=== PATIENT | female | born 1990 | race American Indian/Alaskan Native ===

== ENCOUNTER 2020-06-26 20:36 | Emergency (ER) | payer OTHER ==
[2020-06-27] MEDS ORDERED: dexAMETHasone 20 MG/5 ML VIAL IM ONE (00:46)
[2020-06-27] MEDS ORDERED: hydrOXYzine PAMOATE 25 MG CAP PO ONE ×2 (00:46)
[2020-06-27] MEDS ORDERED: FAMOTIDINE 20 MG TAB PO ONE ×2 (00:46)
--- NOTE | 2020-06-27 00:51 | Emergency Department Report ---
ED Allergic Reaction HPI - General Chief complaint: Skin Rash Stated complaint: ALLERGIC REACTION Source: patient Mode of arrival: Ambulatory Limitations: No Limitations - History of Present Illness Initial Comments: Patient is a nulliparous 29-year-old -Ind[place]ian female with no past medical history presents to the ED with acute onset persistent itchy diffuse erythematous maculopapular urticarial rashes after eating some spicy food over 1 week ago. Patient states that she has been taking Benadryl intermittently which she admits has been helping her with itching but that as soon as the Benadryl wears out the itching resumes. Patient states that about 2 days ago she had mild lower lip swelling but that also improved with Benadryl. Patient states that the last time she took Benadryl was over 12 hours ago and that a few hours prior to arrival in the ED, the itching became worse and she decided come to the ED for evaluation. Patient denies swollen tongue, swollen throat, dysphagia, dysphonia, shortness of breath, cough, chest pain, wheezing, nausea and vomiting, diarrhea or abdominal pain, fever or chills, facial swelling or hoarseness. MD Complaint: allergic reaction, hives, other (diffuse itchy erythematous maculopapular urticarial rashes) -: Sudden, week(s) (1) Exposure: food Symptoms: rash, itching. denies: facial swelling, lip swelling, difficulty swallowing, difficulty breathing, orolingual swelling, hoarseness, syncopy, dizziness, nausea, vomiting, other, abdominal pain Severity: severe Treatment Prior to Arrival: benadryl (12 hours ago) Previous Allergy History: none - Related Data Previous Rx's Medication Instructions Recorded Last Taken Type Famotidine [Pepcid] 20 mg PO BID #30 tablet 06/27/20 Unknown Rx Prednisone [predniSONE 10 mg 10 mg PO .TAPER #21 tab.ds.pk 06/27/20 Unknown Rx (6-Day Pack, 21 Tabs)] diphenhydrAMINE [Benadryl CAP] 25 mg PO Q6HR PRN #30 capsule 06/27/20 Unknown Rx ED Review of Systems ROS: Stated complaint: ALLERGIC REACTION Other details as noted in HPI Constitutional: denies: chills, fever Eyes: denies: eye pain, eye discharge, vision change ENT: denies: ear pain, throat pain Respiratory: denies: cough, shortness of breath, wheezing Cardiovascular: denies: chest pain, palpitations Endocrine: no symptoms reported Gastrointestinal: denies: abdominal pain, nausea, diarrhea Genitourinary: denies: urgency, dysuria, discharge Musculoskeletal: denies: back pain, joint swelling, arthralgia Skin: rash, change in color, pruritus, other (Diffuse erythematous maculopapular urticarial rashes). denies: lesions Neurological: denies: headache, weakness, paresthesias Psychiatric: denies: anxiety, depression Hematological/Lymphatic: denies: easy bleeding, easy bruising ED Past Medical Hx - Past Medical History Previous Medical History?: No - Surgical History Past Surgical History?: Yes Additional Surgical History: Breast - Social History Smoking Status: Never Smoker Substance Use Type: Alcohol - Medications Home Medications: Home Medications Medication Instructions Recorded Confirmed Last Taken Type Famotidine [Pepcid] 20 mg PO BID #30 tablet 06/27/20 Unknown Rx Prednisone [predniSONE 10 mg 10 mg PO .TAPER #21 tab.ds.pk 06/27/20 Unknown Rx (6-Day Pack, 21 Tabs)] diphenhydrAMINE [Benadryl CAP] 25 mg PO Q6HR PRN #30 capsule 06/27/20 Unknown Rx ED Physical Exam - General Limitations: No Limitations General appearance: alert, in no apparent distress - Head Head exam: Present: atraumatic, normocephalic, normal inspection - Eye Eye exam: Present: normal appearance, PERRL, EOMI Pupils: Present: normal accommodation - ENT ENT exam: Present: normal exam, normal orophraynx, mucous membranes moist, TM's normal bilaterally, normal external ear exam - Neck Neck exam: Present: normal inspection, full ROM - Respiratory Respiratory exam: Present: normal lung sounds bilaterally. Absent: respiratory distress, wheezes, rales, stridor, chest wall tenderness, accessory muscle use, prolonged expiratory - Cardiovascular Cardiovascular Exam: Present: normal rhythm, tachycardia, normal heart sounds. Absent: systolic murmur, diastolic murmur, rubs, gallop - GI/Abdominal GI/Abdominal exam: Present: soft, normal bowel sounds. Absent: tenderness, guarding, rebound, hyperactive bowel sounds, hypoactive bowel sounds, mass - Extremities Exam Extremities exam: Present: normal inspection, full ROM, normal capillary refill - Back Exam Back exam: Present: normal inspection, full ROM. Absent: tenderness, CVA tenderness (R), CVA tenderness (L), muscle spasm, paraspinal tenderness, vertebral tenderness - Neurological Exam Neurological exam: Present: alert, oriented X3, CN II-XII intact, normal gait, reflexes normal - Psychiatric Psychiatric exam: Present: normal affect, normal mood - Skin Skin exam: Present: warm, dry, intact, rash (Diffuse erythematous maculopapular urticarial rashes), erythema, urticaria ED Course Vital Signs 06/26/20 20:50 Temperature 99.9 F H Pulse Rate 128 H Respiratory 16 Rate Blood Pressure 122/73 O2 Sat by Pulse 98 Oximetry ED Medical Decision Making - Medical Decision Making This is a nulliparous 29-year-old -Ind[place]ian female with no past medical history presents to the ED with acute onset persistent itchy diffuse erythematous maculopapular urticarial rashes after eating some spicy food over 1 week ago. Patient states that she has been taking Benadryl intermittently which she admits has been helping her with itching but that as soon as the Benadryl wears out the itching resumes. Patient states that about 2 days ago she had mild lower lip swelling but that also improved with Benadryl. Patient states that the last time she took Benadryl was over 12 hours ago and that a few hours prior to arrival in the ED, the itching became worse and she decided come to the ED for evaluation. In the ED, patient is alert and oriented x3 and is not in distress but tachycardic in triage. Patient was treated in the ED for acute allergic reaction with Decadron, Pepcid and Vistaril. On reevaluation, patient's itching resolved as well as the rashes. Patient's tachycardia also resolved. Patient was discharged home on most steroid Dosepak, Benadryl as well as Pepcid prescriptions. Patient was advised to follow-up with her primary care physician in 5 to 7 days for reevaluation or return to the ED immediately if symptoms get worse. - Differential Diagnosis Urticaria; angioedema; dyspnea, allergic reaction; Itching Critical care attestation.: If time is entered above; I have spent that time in minutes in the direct care of this critically ill patient, excluding procedure time. ED Disposition Clinical Impression: Acute urticaria, Itching with irritation Acute allergic reaction Qualifiers: Encounter type: initial encounter Qualified Code(s): T78.40XA - Allergy, unspecified, initial encounter Disposition: TO HOME OR SELFCARE Is pt being admited?: No Does the pt Need Aspirin: No Condition: Stable Instructions: Urticaria (ED), Allergies (ED), Itchy Skin (ED) Additional Instructions: Take medication with food, drink plenty of fluids and follow-up with your primary care physician in 3 to 5 days for reevaluation. Return to the ED immediately if symptoms get worse. Prescriptions: diphenhydrAMINE [Benadryl CAP] 25 mg PO Q6HR PRN #30 capsule PRN Reason: Itching Famotidine [Pepcid] 20 mg PO BID #30 tablet Prednisone [predniSONE 10 mg (6-Day Pack, 21 Tabs)] 10 mg PO .TAPER #21 tab.ds.pk Referrals: [facility] [Provider Group] - 3-5 Days Time of Disposition: 00:51 Print Language: BURUNDIAN
[2020-06-27 07:59] VITALS: BP 122/59
== END 2020-06-27 01:55 | disposition home or self-care (01) ==
LOC: ED 20:36
DX: T78.40XA Allergy, unspecified, initial encounter (principal); L50.8 Other urticaria; L29.9 Pruritus, unspecified; Z98.890 Other specified postprocedural states; Z79.899 Other long term (current) drug therapy; X58.XXXA Exposure to other specified factors, initial encounter
CPT/HCPCS: 96372; 99282; J1100; Q0177

== ENCOUNTER 2020-07-04 16:38 | Emergency (ER) | payer OTHER ==
[2020-07-04 16:51] VITALS: BP 144/86
[2020-07-04] MEDS ORDERED: ONDANSETRON 4 MG/2 ML INJ IV STA (18:29)
[2020-07-04] MEDS ORDERED: SODIUM CHLORIDE 0.9% 1000 ML 1,000 ML IV ONE ×2 (18:29→21:16)
[2020-07-04 19:00] LABS: Basophils % (Auto) 0.3 % (0.0-1.8); Eosinophils % (Auto) 0.1 % (0.0-4.3); Hematocrit 42.2 % (30.3-42.9); Hemoglobin 13.5 gm/dl (10.1-14.3); Lymphocytes # (Auto) 2.3 K/mm3 (1.2-5.4); Lymphocytes % (Auto) 22.5 % (13.4-35.0); Mean Corpuscular HGB Conc 32 % (30-34); Mean Corpuscular Volume 81 fl (79-97); Monocytes % (Auto) 9.8 % (0.0-7.3); Platelet Count 355 K/mm3 (140-440); Red Blood Count 5.23 M/mm3 (3.65-5.03); Red Cell Distribution Width 14.6 % (13.2-15.2)
[2020-07-04 19:21] LABS: Alanine Aminotransferase 24 units/L (7-56); Albumin 4.3 g/dL (3.9-5); BUN/Creatinine Ratio 28; Blood Urea Nitrogen 14 mg/dL (7-17); Calcium 10.6 mg/dL (8.4-10.2); Hemolysis Index 10
[2020-07-04 20:58] LABS: HCG Qualitative,Urine Negative (Negative)
--- NOTE | 2020-07-04 21:04 | Emergency Department Report ---
ED N/V/D HPI - General Chief complaint: Nausea/Vomiting/Diarrhea Stated complaint: N/V/WEAKNESS/ Time Seen by Provider: 07/04/20 17:44 Source: patient Mode of arrival: Ambulatory Limitations: No Limitations - History of Present Illness Initial comments: 29-year-old Armenian female resents emerged department complaining of a 3-day history of nausea and vomiting and a 2-day history of decreased appetite and food intake due to to increase nausea and vomiting associated with vague episodic left upper quadrant pain. Reports no hematemesis hematochezia, no fever, chills, sweats, chest pain, palpitation. States that she gets a little lightheaded with standing but is feels fairly normal with minimal nausea when in the seated position. MD complaint: nausea, vomiting -: days(s) (3) Associated Abdominal Pain: No Severity: mild Quality: dull Improves with: none Worsens with: none Context: possible food poisoning Associated Symptoms: nausea/vomiting. denies: chest pain, cough, diaphoresis, fever/chills, loss of appetite, malaise, rash, dysuria, shortness of breath, syncope, weakness - Related Data Previous Rx's Medication Instructions Recorded Last Taken Type Famotidine [Pepcid] 20 mg PO BID #30 tablet 06/27/20 Unknown Rx Prednisone [predniSONE 10 mg 10 mg PO .TAPER #21 tab.ds.pk 06/27/20 Unknown Rx (6-Day Pack, 21 Tabs)] diphenhydrAMINE [Benadryl CAP] 25 mg PO Q6HR PRN #30 capsule 06/27/20 Unknown Rx Ondansetron [Zofran Odt] 4 mg PO Q8HR #20 tab.rapdis 07/04/20 Unknown Rx hydrOXYzine HCL [Atarax] 25 mg PO Q6HR PRN #20 tablet 07/04/20 Unknown Rx predniSONE [Deltasone] 20 mg PO BID #10 tablet 07/04/20 Unknown Rx Allergies Allergy/AdvReac Type Severity Reaction Status Date / Time No Known Allergies Allergy Verified 07/04/20 16:47 ED Review of Systems ROS: Stated complaint: N/V/WEAKNESS/ Other details as noted in HPI Comment: All other systems reviewed and negative ED Past Medical Hx - Past Medical History Previous Medical History?: No - Surgical History Additional Surgical History: Breast - Social History Smoking Status: Never Smoker Substance Use Type: None - Medications Home Medications: Home Medications Medication Instructions Recorded Confirmed Last Taken Type Famotidine [Pepcid] 20 mg PO BID #30 tablet 06/27/20 Unknown Rx Prednisone [predniSONE 10 mg 10 mg PO .TAPER #21 tab.ds.pk 06/27/20 Unknown Rx (6-Day Pack, 21 Tabs)] diphenhydrAMINE [Benadryl CAP] 25 mg PO Q6HR PRN #30 capsule 06/27/20 Unknown Rx Ondansetron [Zofran Odt] 4 mg PO Q8HR #20 tab.rapdis 07/04/20 Unknown Rx hydrOXYzine HCL [Atarax] 25 mg PO Q6HR PRN #20 tablet 07/04/20 Unknown Rx predniSONE [Deltasone] 20 mg PO BID #10 tablet 07/04/20 Unknown Rx ED Physical Exam - General Limitations: No Limitations General appearance: alert, in no apparent distress - Head Head exam: Present: atraumatic, normocephalic - Eye Eye exam: Present: normal appearance, PERRL, EOMI Pupils: Present: normal accommodation - ENT ENT exam: Present: mucous membranes moist - Neck Neck exam: Present: normal inspection - Respiratory Respiratory exam: Present: normal lung sounds bilaterally. Absent: respiratory distress - Cardiovascular Cardiovascular Exam: Present: regular rate, normal rhythm. Absent: systolic murmur, diastolic murmur, rubs, gallop - GI/Abdominal GI/Abdominal exam: Present: soft, tenderness (To the epigastric region), normal bowel sounds - Extremities Exam Extremities exam: Present: normal inspection, full ROM, normal capillary refill - Back Exam Back exam: Present: normal inspection. Absent: CVA tenderness (R), CVA tenderness (L) - Neurological Exam Neurological exam: Present: alert, oriented X3, CN II-XII intact, normal gait - Psychiatric Psychiatric exam: Present: normal affect, normal mood - Skin Skin exam: Present: warm, dry, intact, normal color. Absent: rash ED Course Vital Signs 07/04/20 16:50 Temperature 98.1 F Pulse Rate 135 H Respiratory 20 Rate Blood Pressure 144/86 O2 Sat by Pulse 98 Oximetry - Reevaluation(s) Reevaluation #1: 07/04/20 22:59 Discharge daughter developed some rash rash and hives on her forearm during the second bag of normal saline with an unknown etiology she reports ingesting no new material. No wheezing no odynophagia no dysphasia no shortness of breath no fever chills sweats. ED Medical Decision Making - Lab Data Result diagrams: 07/04/20 18:32 07/04/20 18:32 - Medical Decision Making 29-year-old -Armenian female presents emergency department complaining of nausea and vomiting without diarrhea. The patient is overall well-appearing and suspected to have food poisoning. Given the history of examination he does not appear to be an emergency cause for the symptoms such as small bowel obstruction, coronary syndrome, bowel ischemia, DKA, pancreatitis, appendicitis, acute abdomen no emergent problem. Abdominal examination without peritoneal signs. Currently patient is euvolemic without evidence of dehydration. No evidence of surgical abdomen or other acute medical emergency including bowel obstruction, viscus perforation, vascular catastrophe, appendicitis, cholecystitis at this time. Presentation not consistent with other acute emergent causes of vomiting and diarrhea at this time. No indication for abdominal imaging Patient presents to the emergency department with nausea, vomiting, diarrhea, differential diagnosis includes possible acute gastroenteritis. Plan supportive care, oral/IV rehydration, antiemetics and reassess Critical care attestation.: If time is entered above; I have spent that time in minutes in the direct care of this critically ill patient, excluding procedure time. ED Disposition Clinical Impression: Vomiting, Dehydration, Allergic reaction Disposition: [id number]-01 TO HOME OR SELFCARE Is pt being admited?: No Does the pt Need Aspirin: No Condition: Stable Instructions: Food Poisoning (ED), Acute Nausea and Vomiting (ED), Gastroenteritis (ED) Prescriptions: hydrOXYzine HCL [Atarax] 25 mg PO Q6HR PRN #20 tablet PRN Reason: Itching predniSONE [Deltasone] 20 mg PO BID #10 tablet Ondansetron [Zofran Odt] 4 mg PO Q8HR #20 tab.rapdis Referrals: PRIMARY CARE, [Primary Care Provider] - 3-5 Days [facility] [Provider Group] - 3-5 Days
[2020-07-04] MEDS ORDERED: diphenhydrAMINE 50 MG/ML VIAL IV ONE (21:52)
[2020-07-04] MEDS ORDERED: dexAMETHasone 4 MG/ML VIAL IV ONE (21:53)
[2020-07-04] MEDS ORDERED: dexAMETHasone 20 MG/5 ML VIAL ONE (21:55)
[2020-07-04] MEDS ORDERED: diphenhydrAMINE 50 MG/ML VIAL ONE (21:55)
== END 2020-07-04 23:20 | disposition home or self-care (01) ==
LOC: ED 16:38
DX: T78.40XA Allergy, unspecified, initial encounter (principal); E86.0 Dehydration; X58.XXXA Exposure to other specified factors, initial encounter
CPT/HCPCS: 36415; 80053; 81025; 83690; 85025; 96361; 96374; 96375; 99283; J1100; J1200; J2405; J7030